=== PATIENT | female | born 1935 | race Caucasian/White ===

== ENCOUNTER 2016-12-24 08:52 | Day surgery (SDC) | payer MEDICARE ==
[~2016-12-24 08:52] MED LIST: FENTANYL 250 MCG/5 ML AMP IV PRN; LACTATED RINGERS 1,000 ML IV SCH; MIDAZOLAM HCL 5 MG/5 ML VIAL IV PRN
[2016-12-24] MEDS ORDERED: PROPOFOL 20 ML IV ONE (10:02)
--- NOTE | 2016-12-31 14:20 | SURGPATH ---
[facility] [address] [place] [id number] Patient Name: ALTA MURILLO MR#: [id number] : 1935 Gender: F Specimen #: [id number] Collected: 12/24/2016 Received: 12/25/2016 Reported: 12/28/2016 Submitting Phys: BRIAN VARGAS Copy To Phys: [facility] KEN SINGLE[facility] Clinical History / Pre-Operative Diagnosis: CHANGE IN BOWEL PATTERN; RECTAL BLEEDING; RULE OUT COLITIS Specimen Source / Surgical Procedure Performed: #1-CECAL BIOPSY; #2-SIGMOID BIOPSY AT 30 CM Interpretation: 1. CECUM, BIOPSY: - COLONIC MUCOSA SHOWING NO DIAGNOSTIC ABNORMALITIES. - NO EVIDENCE OF SIGNIFICANT INFLAMMATION OR MALIGNANCY. 2. COLON, SIGMOID 30 CM, BIOPSY: - MODERATE CHRONIC ACTIVE COLITIS. - NO EVIDENCE OF GRANULOMAS, DYSPLASIA, OR MALIGNANCY. Electronically Signed Out Edward Bedolla M.D., Ph.D. Gross Description: #1 The specimen is received in a formalin filled container labeled with the patient's name and "cecal biopsy". A single beck biopsy is 0.4 cm. Totally embedded in cassette #1. #2 The specimen is received in a formalin filled container labeled with the patient's name and "sigmoid biopsy at 30 cm". Two beck biopsies are each 0.4 cm. Totally embedded in cassette #2. Ramin Stearns Microscopic Description: 1. Examination of multiple levels from the cecum biopsy shows a single fragment of histologically unremarkable colonic mucosa. The architecture is intact without evidence of distortion. There is no evidence of significant inflammation or malignancy. 2. Examination of multiple levels from the sigmoid colon biopsy at 30 cm shows a single fragment of colonic mucosa with expansion of the lamina propria by a mixed inflammatory cell infiltrate consisting of lymphocytes, plasma cells, eosinophils, and neutrophils. Cells within the glandular epithelium and occasional crypt abscesses are seen. Architectural distortion characterized by crypt dropout and loss of mucin are seen. There is no evidence of granulomas, dysplasia, or malignancy. 1: 66913 2: 84481 K52.9
== END 2016-12-24 15:17 | disposition home or self-care (01) ==
LOC: SDC 08:52
PROVIDERS: ATTEND Internal Medicine Gastroenterology
DX: K51.90 Ulcerative colitis, unspecified, without complications (principal); K57.30 Diverticulosis of large intestine without perforation or abscess without bleeding; E11.9 Type 2 diabetes mellitus without complications; E03.9 Hypothyroidism, unspecified; I48.91 Unspecified atrial fibrillation; E78.00 Pure hypercholesterolemia, unspecified; I10 Essential (primary) hypertension